=== PATIENT | female | born 1965 | race Caucasian/White ===

== ENCOUNTER 2021-03-13 14:17 | Emergency (ER) | payer OTHER, SELFPAY ==
[2021-03-13 14:23] VITALS: BP 152/91; PULSE 108; RESP 16; TEMP 36.6; O2SAT 95; BMI 24.0
--- NOTE | 2021-03-13 17:13 | CTR_ITS ---
PROCEDURE INFORMATION: Exam: CT Head Without Contrast Exam date and time: 03/13/2021 5:13 PM Age: 55 years old Clinical indication: Weakness, facial; Patient HX: PT states had a bleed and stroke 20 years ago. ; Additional info: Symptoms of acute stroke. Left sided facial numbness. TECHNIQUE: Imaging protocol: Computed tomography of the head without contrast. Radiation optimization: All CT scans at this facility use at least one of these dose optimization techniques: automated exposure control; mA and/or kV adjustment per patient size (includes targeted exams where dose is matched to clinical indication); or iterative reconstruction. Other technique: STROKE PROTOCOL was implemented. COMPARISON: No relevant prior studies available. RADIATION DOSE METRICS: Total DLP (mGy-cm): 788.09 FINDINGS: Brain: There is hyperdense focus in the left thalamus measuring 1.4 x 1.1 x 1.6 cm. This is seen on series 2, image 25 and series 601, image 21. This lesion measures approximately 50 Hounsfield units in density, and is concerning for an acute thalamic hemorrhage. The possibility of focal thalamic cavernous malformation, which can have a similar appearance, is not excluded. No mass effect or midline shift associated with the left thalamic hyperdensity. Brain parenchyma is otherwise unremarkable in appearance. Cerebral ventricles: No ventriculomegaly. Paranasal sinuses: Visualized sinuses are unremarkable. No fluid levels. Mastoid air cells: Unremarkable as visualized. No mastoid effusion. Bones/joints: Unremarkable. No acute fracture. Soft tissues: Unremarkable. CT/CT head wo con* [id number] IMPRESSION: 1. There is hyperdense focus in the left thalamus measuring 1.4 x 1.1 x 1.6 cm. This is concerning for an acute thalamic hemorrhage versus a cavernous malformation. Recommend MRI of the brain for further assessment of this lesion. 2. The study is otherwise unremarkable. ASSESSMENT: ASPECTS ([place] Stroke Program Early CT Score) is 9. THIS REPORT CONTAINS FINDINGS MAY BE CRITICAL TO PATIENT CARE. The findings were verbally communicated via telephone conference call with Dr. EDMOND LU, at 7:20 PM CDT on 03/13/2021. The findings were acknowledged and understood. Radiation Dose CTDIVOL = (mGy): DLP = 788.09 (mGy-cm)
--- NOTE | 2021-03-13 17:13 | ECG_ITS ---
[facility] Test Date: 2021-03-13 Pat Name: Rosario Panchal Department: Room: Gender: Female Dimensional Engineer: : 1965 Requested By: Sarabjit Stoner I Order Number: [id number] Reading MD: WILLIS DANIEL Measurements Intervals [place] Rate: 89 P: 50 [place]: 151 QRS: 64 QRSD: 77 T: 65 QT: 338 QTc: 412 Interpretive Statements SINUS RHYTHM WITH SINUS ARRHYTHMIA POSSIBLE LEFT ATRIAL ENLARGEMENT [-0.1mV P-WAVE IN V1/V2] No previous ECG available for comparison Electronically Signed On 03-13-2021 21:07:15 CDT by WILLIS DANIEL [email or web address] biloxiYoukucleveland clinic south pointe hospitalSensorion/store/OM/[id number]
--- NOTE | 2021-03-13 17:13 | XRR_ITS ---
PROCEDURE INFORMATION: Exam: XR Chest Exam date and time: 03/13/2021 5:13 PM Age: 55 years old Clinical indication: Other: Numbness; Additional info: Stroke symptoms TECHNIQUE: Imaging protocol: XR of the chest. Views: 1 view. COMPARISON: No relevant prior studies available. FINDINGS: Lungs: No consolidation. Pleural spaces: No pleural effusion. No pneumothorax. Heart/Mediastinum: No cardiomegaly. Bones/joints: Unremarkable. XR/XR chest 1V portable [id number] IMPRESSION: No acute abnormality demonstrated.
--- NOTE | 2021-03-13 17:20 | ED_ITS ---
HPI - Neuro Symptoms/Deficit General: Chief Complaint: Neuro Symptoms/Deficit Stated Complaint: HEAD AND FACE NUMB Time Seen by Provider: 03/13/21 16:35 Source: patient, family and RN notes reviewed Mode of arrival: ambulatory Limitations: no limitations History of Present Illness: HPI Narrative: Patient is a 55-year-old female with a history of cavernous sinus hemangioma who took a Covid vaccine yesterday. Last night she noticed numbness on the left side of her face, which she took benadryl for. She states that her symptoms improved after that. This morning she had similar symptoms again and took another benadryl which helped. This afternoon about 4 hours ago her symptoms returned with paresthesia on the left side of her face. She called her PCP who advised that she come to the ED for evaluation. Onset (ago): hour(s) (18) Location: left face History of same: No Severity: mild Quality: numb Relieving factors: medication (benadryl) Exacerbating factors: none Context: gradual onset On Anticoagulants: No Associated symptoms: Deny chest pain, cough, diaphoresis, fevers/chills, headache(s), anorexia, malaise, nausea, seizures, short of breath, syncope, vertigo, vomiting or weakness Treatments Prior to Arrival: other medication (benadryl) Review of Systems General: Reports: 10 or more systems reviewed and unremarkable except in HPI and below Const: Denies: malaise or diaphoresis Card: Denies: chest pain or syncope GI: Denies: nausea or vomiting Neuro: Denies: headache(s) or vertigo NIH stroke score NIHSS: Level Of Consciousness - 1a: 0 Level Of Consciousness Questions - 1b: Both Correct Level Of Consciousness Commands - 1c: Both Correct Best Gaze - 2: Normal Visual Choudhary - 3: No Visual Loss Facial Palsy - 4: Normal Motor Arm Right - 5: No Drift Motor Arm Left - 5: No Drift Motor Leg Right - 6: No Drift Motor Leg Left - 6: No Drift Limb Ataxia - 7: Present In One Limb (right upper extremity (which is normal for her since her prior stroke)) Sensory - 8: Normal Best Language - 9: No Aphasia Dysarthia - 10: Normal Extinction And Inattention - 11: 0 Score: Total Score: 1 Physical Exam Const: COMMON NORMALS: no acute distress, average body habitus, patient oriented x3, no limitations, healthy appearing, alert and well nourished HENMT: COMMON NORMALS: normocephalic, atraumatic and moist oral mucous membranes HEAD & SCALP: normocephalic and atraumatic Neck/C-Spine: COMMON NORMALS: no meningeal signs and no JVD Resp: COMMON NORMALS: normal respiratory effort, No retractions, No use of accessory muscles, clear to auscultation bilaterally and percussion normal AUSCULTATION: clear to auscultation bilaterally PERCUSSION: percussion normal Cardio: COMMON NORMALS: no JVD, regular rate, regular rhythm, S1 normal heart sound present, S2 normal heart sound present, No gallops present (Cardio), No clicks present (Cardio), No murmurs present (Cardio), No rub (Cardio) and Peripheral pulses 2+ throughout RATE: regular rate RHYTHM: regular rhythm HEART SOUNDS: S1 normal heart sound present and S2 normal heart sound present PERIPHERAL PULSES: Peripheral pulses 2+ throughout GI: COMMON NORMALS: Normal to inspection, nondistended, normoactive bowel sounds present, Soft to palpation, non-tender, No hepatosplenomegaly present, no masses and no bruits PALPATION: Yes Soft to palpation and Yes No hepatosplenomegaly present Extremity: COMMON NORMALS: normal to inspection, full ROM, capillary refill normal, no calf tenderness and no pedal edema Neuro: COMMON NORMALS: patient oriented x3 SENSORIUM/ORIENTATION: Yes alert MENINGEAL SIGNS: Yes no meningeal signs Skin: COMMON NORMALS: no rashes or lesions noted, no wounds, turgor normal, no jaundice, no petechiae and no mottling GENERAL SKIN EXAM: no rashes or lesions noted and turgor normal Course Reevaluation(s): Reevaluation #1: Discussed her lab and imaging findings with. Also discussed my conversation with the radiologist about her CT scan findings. The patient states that she believes the findings are from her cavernous hemangioma. She states that her symptoms on the left and she expects that if what wants shown on the CT was acute should her symptoms on her right-hand side which she is correct about. She also stated that she has no focal weakness on either side of her body. Also explained to her that the radiologist stated that if there was a bleed she would be significantly symptomatic and not just having some numbness. I still wanted to go ahead and order an MRI just to be sure but the patient states that she knows her body and if she had any concerns that this was a CVA she would go ahead with an MRI but at this time she does not think she will need one. Her symptoms have resolved now.She would like to be discharged home at this point. Time: 19:27 Vital Signs: Vital signs: Vital Signs Temperature 97.9 F 03/13/21 14:23 Pulse Rate 80 03/13/21 19:44 Respiratory Rate 16 03/13/21 19:44 Blood Pressure 148/90 03/13/21 19:44 Pulse Oximetry 98 03/13/21 19:44 MDM - Neuro Symptoms/Deficit MDM Narrative: Medical decision making narrative: 55-year-old female patient who came into the emergency department with facial numbness. Symptoms started last night and have been intermittent since then. Evaluation in the ED is unremarkable although head CT was concerning for possible bleed versus hemangi kiki. She has a history of a hemangioma on the left side of her brain and she believes this is what we are seeing on the CT. Besides her symptoms on the left side which is not consistent with where the abnormal CT scan findings are. Also she has no other symptoms other than numbness and based on CT scan findings she will have more profound symptoms if this was an acute finding. The patient did not want a further work-up as she said she knows what the symptoms are very brain bleed she has had it in the past. She wanted and requested to be discharged home without further work-up. She will return if she has any concerns. Medical Records: Attestation: I reviewed the patient's medical records. Lab Data: Attestation: I reviewed the patient's lab results. Labs: Lab Results 03/13/21 03/13/21 03/13/21 Range/Units 18:30 18:30 18:30 WBC 5.9 (4.0-10.0) 10^3/ uL RBC 5.03 (4.1-5.3) 10^6/u L Hgb 15.0 (11.5-15.3) g/dL Hct 46.1 (37.0-47.0) % MCV 91.7 (81-99) fl MCH 29.8 (28.0-34.0) pg MCHC 32.5 (30.0-36.0) g/dL RDW 12.4 (12.1-15.1) % Plt Count 304 (130-400) 10^3/c mm MPV 10.1 (7.4-10.4) fL Neut % (Auto) 73.0 % Lymph % (Auto) 19.6 % [place] % (Auto) 6.1 % Eos % (Auto) 0.3 % Baso % (Auto) 0.7 % Neut # (Auto) 4.33 (1.8-7.7) 10^3/u L Lymph # (Auto) 1.2 (0.8-4.8) 10^3/u L [place] # (Auto) 0.4 (0.2-0.9) 10^3/u L Eos # (Auto) 0.0 (0.0-0.8) 10^3/u L Baso # (Auto) 0.0 (0.0-0.1) 10^3/u L Nucleated RBC % (a uto) 0 % Nucleated RBCs # 0.0 /100WBC PT 12.00 L (12.1-14.9) SECO NDS INR 0.86 (0.8-1.2) APTT 24.1 (23.9-36.7) SECO NDS Sodium 138 (136-145) mmol/L Potassium 4.3 (3.5-5.1) mmol/L Chloride 99 (98-107) mmol/L Carbon Dioxide 29 (22-29) mmol/L Anion Gap 14.3 (5-19) BUN 12 (6-20) mg/dL Creatinine 0.6 (0.5-0.9) mg/dL GFR Calculation 104.6 (90-130) mL/min Glucose 87 (65-115) mg/dL Calculated Osmolal ity 285 (285-295) mOsm/k g Calcium 9.5 (8.5-10.5) mg/dL Total Bilirubin 0.2 (0.15-1.2) mg/dL AST 20 (0-32) U/L ALT 22 (0-33) U/L Alkaline Phosphata se 117 H (35-105) IU/L Total Protein 8.1 (6.6-8.7) g/dL Albumin 4.6 (3.5-5.2) g/dL Globulin 3.5 (1.3-4.6) g/dL Imaging Data^: CXR: Attestation: I personally reviewed and interpreted this imaging study as follows: Radiologist's impression: [place], [place] [address]MMyc ReportSigned Patient: Bennett Panchal #: [id number]: 1965Acct#:[id number]/Sex: 55 / FADM Date: 03/13/21Loc: ERRoom/Bed:Attending Dr: Ordering Provider/Ordering MD: Sarabjit Lu MD, [facility] [place] of Service: 03/13/21 Procedure(s): XR chest 1V portable [id number] Accession Number(s): [id number] Report Number: [id number] PROCEDURE INFORMATION: Exam: XR Chest Exam date and time: 03/13/2021 5:13 PM Age: 55 years old Clinical indication: Other: Numbness; Additional info: Stroke symptoms TECHNIQUE: Imaging protocol: XR of the chest. Views: 1 view. COMPARISON: No relevant prior studies available. FINDINGS: Lungs: No consolidation. Pleural spaces: No pleural effusion. No pneumothorax. Heart/Mediastinum: No cardiomegaly. Bones/joints: Unremarkable. XR/XR chest 1V portable [id number] IMPRESSION: No acute abnormality demonstrated. Dictated By:Terrell Melendez MDSigned By:Terrell Melendez MDSigned Date/Time:03/13/211758DD/ 57 CT Head: Attestation: I personally reviewed and interpreted this imaging study as follows: Radiologist's impression: Elizabeth Cesar.[place], [place] [address]GU Scan ReportSigned Patient: Bennett Panchal #: [id number]: 1965Acct#:[id number]/Sex: 55 / FADM Date: 03/13/21Loc: ERRoom/Bed:Attending Dr: Ordering Provider/Ordering MD: Sarabjit Lu MD, [facility] [place] Date of Service: 03/13/21 Procedure(s): CT head wo con* [id number] Accession Number(s): [id number] Report Number: [id number] PROCEDURE INFORMATION: Exam: CT Head Without Contrast Exam date and time: 03/13/2021 5:13 PM Age: 55 years old Clinical indication: Weakness, facial; Patient HX: PT states had a bleed and stroke 20 years ago. ; Additional info: Symptoms of acute stroke. Left sided facial numbness. TECHNIQUE: Imaging protocol: Computed tomography of the head without contrast. Radiation optimization: All CT scans at this facility use at least one of these dose optimization techniques: automated exposure control; mA and/or kV adjustment per patient size (includes targeted exams where dose is matched to clinical indication); or iterative reconstruction. Other technique: STROKE PROTOCOL was implemented. COMPARISON: No relevant prior studies available. RADIATION DOSE METRICS: Total DLP (mGy-cm): 788.09 FINDINGS: Brain: There is hyperdense focus in the left thalamus measuring 1.4 x 1.1 x 1.6 cm. This is seen on series 2, image 25 and series 601, image 21. This lesion measures approximately 50 Hounsfield units in density, and is concerning for an acute thalamic hemorrhage. The possibility of focal thalamic cavernous malformation, which can have a similar appearance, is not excluded. No mass effect or midline shift associated with the left thalamic hyperdensity. Brain parenchyma is otherwise unremarkable in appearance. Cerebral ventricles: No ventriculomegaly. Paranasal sinuses: Visualized sinuses are unremarkable. No fluid levels. Mastoid air cells: Unremarkable as visualized. No mastoid effusion. Bones/joints: Unremarkable. No acute fracture. Soft tissues: Unremarkable. CT/CT head wo con* [id number] IMPRESSION: 1. There is hyperdense focus in the left thalamus measuring 1.4 x 1.1 x 1.6 cm. This is concerning for an acute thalamic hemorrhage versus a cavernous malformation. Recommend MRI of the brain for further assessment of this lesion. 2. The study is otherwise unremarkable. ASSESSMENT: ASPECTS ([place] Stroke Program Early CT Score) is 9. THIS REPORT CONTAINS FINDINGS MAY BE CRITICAL TO PATIENT CARE. The findings were verbally communicated via telephone conference call with Dr. SARABJIT LU, at 7:20 PM CDT on 03/13/2021. The findings were acknowledged and understood. Radiation Dose CTDIVOL = (mGy): DLP = 788.09 (mGy-cm) Dictated By:Terrell Melendez MDSigned By:Terrell Melendez MDSigned Date/Time:03/13/214DD/ 21 EKG Data^: EKG 1: Attestation: I personally reviewed and interpreted this EKG as follows: EKG interpretation date: 03/13/21 EKG interpretation time: 17:30 Prior EKG tracings: not available for review Interpretation: Sinus rhythm with sinus arrhythmia. Heart rate [address] changes. Discharge Plan Discharge Patient Disposition: Home Clinical Impression: Left facial numbness, Cavernous hemangioma Condition: Stable Prescriptions: No Action No Known Home Medications RF: 0 Discharge Orders: Discharge ED (Routine); Ordered 03/13/21 Ordered By: Sarabjit Lu Referrals: Elian Ruiz MD [Primary Care Provider] - 1-3 days Discharge Diet: Usual diet Discharge Activity: Increase activity as tolerated Patient Instructions: Numbness and Tingling Activity Restrictions/Additional Instructions: Return for any new or worsening symptoms. Follow-up with your primary care provider within 3 days. Continue your home medications. If you have any concerns for possible stroke please do not hesitate to return for evaluation. Coding Level of Care Code ED Cake Puncher for Chg Fwd Exam Comprehensive
[2021-03-13 18:39] LABS: Basophils % 0.7 %; Eosinophils % 0.3 %; Hematocrit 46.1 % (37.0-47.0); Lymphocytes # 1.2 10^3/uL (0.8-4.8); Lymphocytes % 19.6 %; Mean Corpuscular HGB Conc 32.5 g/dL (30.0-36.0); Mean Corpuscular Hemoglobin 29.8 pg (28.0-34.0); Mean Corpuscular Volume 91.7 fl (81-99); Mean Platelet Volume 10.1 fL (7.4-10.4); Monocytes # 0.4 10^3/uL (0.2-0.9); Monocytes % 6.1 %; Neutrophils # 4.33 10^3/uL (1.8-7.7); Nucleated Red Blood Cells % 0 %; Platelet Count 304 10^3/cmm (130-400); Red Blood Count 5.03 10^6/uL (4.1-5.3); Red Cell Distribution Width 12.4 % (12.1-15.1); White Blood Count 5.9 10^3/uL (4.0-10.0)
[2021-03-13 18:52] LABS: INR 0.86 (0.8-1.2)
[2021-03-13 18:53] LABS: Partial Thromboplastin Time 24.1 SECONDS (23.9-36.7)
[2021-03-13 18:57] LABS: Alanine Aminotransferase 22 U/L (0-33); Albumin Level 4.6 g/dL (3.5-5.2); Alkaline Phosphatase 117 IU/L (35-105); Anion Gap 14.3 (5-19); Aspartate Amino Transferase 20 U/L (0-32); Blood Urea Nitrogen 12 mg/dL (6-20); Calcium 9.5 mg/dL (8.5-10.5); Carbon Dioxide 29 mmol/L (22-29); Chloride 99 mmol/L (98-107); Globulin 3.5 g/dL (1.3-4.6); Glomerular Filtration Rate 104.6 mL/min (90-130); Glucose 87 mg/dL (65-115); Osmolality Calculated 285 mOsm/kg (285-295); Potassium 4.3 mmol/L (3.5-5.1); Sodium 138 mmol/L (136-145); Total Bilirubin 0.2 mg/dL (0.15-1.2); Total Protein 8.1 g/dL (6.6-8.7)
[2021-03-13 19:44] VITALS: BP 148/90; PULSE 80; RESP 16; O2SAT 98
== END 2021-03-13 19:45 | disposition home or self-care (01) ==
PROVIDERS: Emergency Provider Family Medicine; PCP Family Medicine
DX: R20.0 Anesthesia of skin (principal); D18.02 Hemangioma of intracranial structures
CPT/HCPCS: 70450; 71045; 80053; 85025; 85610; 85730; 93005; 99283

== ENCOUNTER → 2022-05-07 14:37 | Outpatient (BNVA) | payer OTHER, SELFPAY | PROVIDERS: PCP Family Medicine; Visit Provider Clinical Nurse Specialist Adult Health | DX: J06.9 Acute upper respiratory infection, unspecified (principal); J01.90 Acute sinusitis, unspecified | CPT/HCPCS: 87400 ==